=== PATIENT | male | born 1970 | race Caucasian/White ===

== ENCOUNTER 2022-03-31 08:50 | Outpatient (CLI) | payer BC, SELFPAY ==
[2022-03-31 13:52] LABS: Albumin* 4.7 g/dL (3.3-5.0)
[2022-03-31 13:54] LABS: Cholesterol* 173 mg/dL (90-199); Total Protein* 7.7 g/dL (6.0-8.3)
[2022-03-31 13:55] LABS: Alanine Aminotransferase* 21 U/L (4-50); Alkaline Phosphatase* 82 U/L (40-150); Aspartate Amino Transferase* 27 U/L (12-35); Bilirubin Direct* 0.1 mg/dL (0.0-0.5); Bilirubin Total* 1.1 mg/dL (0.1-1.5)
== END 2022-03-31 08:51 | disposition home or self-care (01) ==
PROVIDERS: Visit Provider Dermatology
DX: Z79.899 Other long term (current) drug therapy (principal)
CPT/HCPCS: 80076; 82465

== ENCOUNTER 2022-05-10 10:43 | Outpatient (CLI) | payer BC, SELFPAY ==
[2022-05-10 14:13] LABS: Albumin* 4.6 g/dL (3.3-5.0); Chloride* 106 mmol/L (96-114)
[2022-05-10 14:14] LABS: Potassium* 4.4 mmol/L (3.6-5.1); Sodium* 141 mmol/L (135-149)
[2022-05-10 14:16] LABS: Aspartate Amino Transferase* 25 U/L (12-35); Bilirubin Total* 0.8 mg/dL (0.1-1.5); Carbon Dioxide* 29 mmol/L (20-32); Cholesterol* 210 mg/dL (90-199); Creatinine* 1.1 mg/dL (0.5-1.5); Estimated Glomerular Filt Rate 82 ml/min; Total Protein* 7.6 g/dL (6.0-8.3)
[2022-05-10 14:17] LABS: Alanine Aminotransferase* 27 U/L (4-50); Alkaline Phosphatase* 80 U/L (40-150); Blood Urea Nitrogen* 17 mg/dL (7-30); Calcium* 9.5 mg/dL (8.4-10.6); Glucose* 99 mg/dL (60-115); HDL Cholesterol* 30 mg/dL (>=40); LDL Cholesterol Calculated 125 mg/dL (<100); Triglycerides* 277 mg/dL (40-149)
== END 2022-05-10 10:44 | disposition home or self-care (01) ==
LOC: FRMREF 10:45
PROVIDERS: Visit Provider Dermatology
DX: Z79.899 Other long term (current) drug therapy (principal)
CPT/HCPCS: 80053; 80061

== ENCOUNTER 2022-06-09 09:06 | Outpatient (CLI) | payer BC, SELFPAY ==
[2022-06-09 13:16] LABS: Albumin* 4.6 g/dL (3.3-5.0)
[2022-06-09 13:19] LABS: Bilirubin Direct* 0.3 mg/dL (0.0-0.5); Bilirubin Total* 0.9 mg/dL (0.1-1.5); Cholesterol* 198 mg/dL (90-199); Total Protein* 7.6 g/dL (6.0-8.3)
[2022-06-09 13:20] LABS: Alanine Aminotransferase* 22 U/L (4-50); Alkaline Phosphatase* 86 U/L (40-150); Aspartate Amino Transferase* 26 U/L (12-35); HDL Cholesterol* 28 mg/dL (>=40); LDL Cholesterol Calculated 139 mg/dL (<100); Triglycerides* 155 mg/dL (40-149)
== END 2022-06-09 09:07 | disposition home or self-care (01) ==
PROVIDERS: Visit Provider Dermatology
DX: Z79.899 Other long term (current) drug therapy (principal)
CPT/HCPCS: 80061; 80076